=== PATIENT | male | born 1995 | race Caucasian/White ===

== ENCOUNTER 2018-03-06 03:53 | Emergency (ER) | payer SELFPAY ==
[~2018-03-06] VITALS: Ht 172.7 cm; Wt 63.5 kg
[2018-03-06 03:55] VITALS: BP_SYST 122
[2018-03-06] MEDS ORDERED: LIDOCAINE 1% 10 MG/ML, 20 ML MDV INJ ONE (05:00)
[2018-03-06] MEDS ORDERED: DIPH-TET-PERTUS Vaccine 0.5 ML VIAL (ADACEL) I.M. ONE (05:30)
[2018-03-06] MEDS ORDERED: ACETAMINOPHEN 325 MG TABLET PO ONE (05:30)
[2018-03-06] MEDS ORDERED: BACITRACIN 1 GM OINT TP ONE (05:30)
[2018-03-06 05:50] VITALS: BP_SYST 132
== END 2018-03-06 05:50 | disposition home or self-care (01) ==
LOC: SED 03:53
DX: S51.812A Laceration without foreign body of left forearm, initial encounter (principal); W45.8XXA Other foreign body or object entering through skin, initial encounter; Y93.89 Activity, other specified; Y92.89 Other specified places as the place of occurrence of the external cause; Y99.8 Other external cause status
CPT/HCPCS: 90715; 99283